=== PATIENT | male | born 1970 | race American Indian/Alaskan Native ===

== ENCOUNTER 2019-06-14 15:53 | Emergency (ER) | payer OTHER ==
[2019-06-14] MEDS ORDERED: SODIUM CHLORIDE 0.9% 1000 ML 1,000 ML IV ONE ×2 (16:56→17:03)
[2019-06-14] MEDS ORDERED: FAMOTIDINE 20 MG/2 ML INJ IV ONE (16:56)
[2019-06-14] MEDS ORDERED: DICYCLOMINE 20 MG/2 ML INJ IM ONE (16:56)
[2019-06-14] MEDS ORDERED: ONDANSETRON 4 MG/2 ML INJ IV ONE (16:56)
--- NOTE | 2019-06-14 17:01 | Emergency Department Report ---
ED Abdominal Pain HPI - General Chief Complaint: Nausea/Vomiting/Diarrhea Stated Complaint: NAUSE/VOMITING/DIARRHEA Time Seen by Provider: 06/14/19 16:56 Source: patient, EMS Mode of arrival: Stretcher Limitations: Other - History of Present Illness Initial Comments: Patient is currently patient at [facility] undergoing treatment for mental health issue who is presenting to our emergency department for medical clearance and evaluation. Patient noted to have nausea vomiting diarrhea today. Patient states he is crampy diffuse abdominal pain. Patient states he did have some chills and possible fever earlier today. He denies blood in either the vomit or stool. MD Complaint: abdominal pain Location: diffuse Severity scale (0 -10): 6 Quality: cramping Improves With: nothing Worsens With: nothing - Related Data Previous Rx's Medication Instructions Recorded Last Taken Type Dicyclomine [Bentyl] 20 mg PO QID #10 tablet 06/14/19 Unknown Rx Famotidine [Pepcid] 40 mg PO QHS #10 tablet 06/14/19 Unknown Rx Ondansetron [Zofran Odt] 4 mg PO Q8HR #10 tab.rapdis 06/14/19 Unknown Rx Allergies Allergy/AdvReac Type Severity Reaction Status Date / Time shellfish derived Allergy Unknown Verified 06/14/19 16:50 ED Review of Systems ROS: Stated complaint: NAUSE/VOMITING/DIARRHEA Other details as noted in HPI Comment: All other systems reviewed and negative ED Past Medical Hx - Past Medical History Previous Medical History?: Yes Hx Hypertension: Yes Hx Diabetes: Yes Hx Psychiatric Treatment: Yes (MDD, SI) Additional medical history: Hyperlipidemia. Sleep apnea - Social History Smoking Status: Current Every Day Smoker Substance Use Type: Alcohol - Medications Home Medications: Home Medications Medication Instructions Recorded Confirmed Last Taken Type Dicyclomine [Bentyl] 20 mg PO QID #10 tablet 06/14/19 Unknown Rx Famotidine [Pepcid] 40 mg PO QHS #10 tablet 06/14/19 Unknown Rx Ondansetron [Zofran Odt] 4 mg PO Q8HR #10 tab.rapdis 06/14/19 Unknown Rx ED Physical Exam - General Limitations: Other General appearance: alert, in no apparent distress - Head Head exam: Present: atraumatic, normocephalic - Eye Eye exam: Present: normal appearance, PERRL, EOMI - ENT ENT exam: Present: normal orophraynx, mucous membranes moist - Neck Neck exam: Present: normal inspection - Respiratory Respiratory exam: Present: normal lung sounds bilaterally. Absent: respiratory distress, wheezes, rales, rhonchi - Cardiovascular Cardiovascular Exam: Present: regular rate, normal rhythm, normal heart sounds. Absent: systolic murmur, diastolic murmur, rubs, gallop - GI/Abdominal GI/Abdominal exam: Present: soft, tenderness (diffuse), normal bowel sounds. Absent: distended, guarding, rebound - Rectal Rectal exam: Present: deferred - Extremities Exam Extremities exam: Present: normal inspection - Back Exam Back exam: Present: normal inspection - Neurological Exam Neurological exam: Present: alert, oriented X3 - Psychiatric Psychiatric exam: Present: normal affect, normal mood - Skin Skin exam: Present: warm, dry, intact, normal color. Absent: rash ED Course Vital Signs 06/14/19 16:43 Temperature 98.2 F Pulse Rate 105 H Respiratory 16 Rate Blood Pressure 106/65 O2 Sat by Pulse 98 Oximetry ED Medical Decision Making - Lab Data Result diagrams: 06/14/19 17:28 06/14/19 17:28 - Radiology Data Ordering Physician: ADRIEL KELSEY MD Date of Service: 06/14/19 Procedure(s): CT abdomen pelvis wo con Accession Number(s): [id number] cc: ADRIEL KELSEY MD CT abdomen pelvis wo con INDICATION: NVD. TECHNIQUE: All CT scans at this location are performed using the following dose modulation technique: Automated exposure control. Helical slices were obtained through the abdomen and pelvis. No contrast is administered. COMPARISON: None available. FINDINGS: Abdomen: No acute abnormality is seen in the lower chest. The liver, spleen, pancreas, adrenal glands, and small bowel show no acute abnormality. There is nephrolithiasis on the right. There is no hydronephrosis. There is a cyst in the lower pole of the right kidney. Postoperative changes are noted in the lumbar spine and left iliac bone. There is no obstruction, inflammation, or free air. Pelvis: The appendix is unremarkable. There is no obstruction or inflammation. There is a reservoir for penile implant anterior to the urinary bladder collapsed. Phleboliths are noted in the pelvis. There are no ureteral calculi. On review of bone windows, no acute osseous abnormalities are seen. IMPRESSION: 1. There is nephrolithiasis on the right. There is no hydronephrosis. There are no ureteral calculi. There is no obstruction, inflammation, or free air. Postoperative changes are noted in the lumbar spine and in the left iliac bone. The reservoir for the patient's penile implant appears to be empty - Medical Decision Making Patient was hydrated given antiemetics and he is feeling improved. Patient likely with a viral gastroenteritis or food poisoning. Patient to be DC'd back to his treatment program with medications for symptomatic relief. Critical care attestation.: If time is entered above; I have spent that time in minutes in the direct care of this critically ill patient, excluding procedure time. ED Disposition Clinical Impression: Gastroenteritis Disposition: DC-01 TO HOME OR SELFCARE Is pt being admited?: No Does the pt Need Aspirin: No Condition: Stable Referrals: PRIMARY CAREMD [Primary Care Provider] - 3-5 Days Time of Disposition: 20:42
[2019-06-14 17:53] LABS: Basophils % (Auto) 0.4 % (0.0-1.8); Eosinophils % (Auto) 0.7 % (0.0-4.3); Hematocrit 41.8 % (35.5-45.6); Hemoglobin 14.2 gm/dl (11.8-15.2); Lymphocytes % (Auto) 44.2 % (13.4-35.0); Mean Corpuscular HGB Conc 34 % (32-34); Mean Corpuscular Volume 91 fl (84-94); Monocytes # (Auto) 0.6 K/mm3 (0.0-0.8); Monocytes % (Auto) 8.7 % (0.0-7.3); Platelet Count 292 K/mm3 (140-440); Red Blood Count 4.58 M/mm3 (3.65-5.03); Red Cell Distribution Width 13.6 % (13.2-15.2)
[2019-06-14 18:14] LABS: Alanine Aminotransferase 15 units/L (7-56); Albumin 4.4 g/dL (3.9-5); BUN/Creatinine Ratio 19; Blood Urea Nitrogen 17 mg/dL (9-20); Calcium 9.7 mg/dL (8.4-10.2); Hemolysis Index 7
--- NOTE | 2019-06-14 20:27 | Cat Scan Report ---
CT abdomen pelvis wo con INDICATION: NVD. TECHNIQUE: All CT scans at this location are performed using the following dose modulation technique: Automated exposure control. Helical slices were obtained through the abdomen and pelvis. No contrast is adminis tered. COMPARISON: None available. FINDINGS: Abdomen: No acute abnormality is seen in the lower chest. The liver, spleen, pancreas, adrenal glands , and small bowel show no acute abnormality. There is nephrolithiasis on the right. There is no hydro nephrosis. There is a cyst in the lower pole of the right kidney. Postoperative changes are noted in the lumbar spine and left iliac bone. There is no obstruction, inflammation, or free air. Pelvis: The appendix is unremarkable. There is no obstruction or inflammation. There is a reservoir f or penile implant anterior to the urinary bladder collapsed. Phleboliths are noted in the pelvis. There are no ureteral calculi. On review of bone windows, no acute osseous abnormalities are seen. IMPRESSION: 1. There is nephrolithiasis on the right. There is no hydronephrosis. There are no ureteral calculi. There is no obstruction, inflammation, or free air. Postoperative changes are noted in the lumbar spine and in the left iliac bone. The reservoir for the patient's penile implant appears to be empty Signer Name: Stuart Jefferson MD Signed: 06/14/2019 8:23 PM Workstation Name: [id number]
[2019-06-14 22:45] VITALS: BP 137/81
== END 2019-06-14 22:42 | disposition home or self-care (01) ==
LOC: ED 15:53
DX: K52.9 Noninfective gastroenteritis and colitis, unspecified (principal); I10 Essential (primary) hypertension; E11.9 Type 2 diabetes mellitus without complications; F17.200 Nicotine dependence, unspecified, uncomplicated; Z79.899 Other long term (current) drug therapy; Z91.013 Allergy to seafood
CPT/HCPCS: 36415; 74176; 80053; 83690; 85025; 96361; 96372; 96374; 96375; 99284; J0500; J2405; J7030